=== PATIENT | female | born 1935 | race Caucasian/White ===

== ENCOUNTER 2022-10-22 10:16 | Inpatient (IN) ==
[2022-10-22] MEDS ORDERED: NS 0.9% 1000 ml BAG 1,000 ML IV SCH (11:15)
[2022-10-22] MEDS ORDERED: Heparin DRIP 25,000 UNITS BAG 25,000 UNITS/500 ML BAG IV SCH (11:15)
[2022-10-22] MEDS ORDERED: fentaNYL 100 mcg/2 ml 50 MCG/ML VIAL ONE (11:17)
[2022-10-22] MEDS ORDERED: Midazolam 5 mg/5 ml VIAL 1 mg/ml 5 ml VIAL (5 mg) ONE (11:17)
[2022-10-22] MEDS ORDERED: VERAPAMIL 2.5 MG/ML 2 ML VIAL ** 5 mg/2 ml ONE (11:17)
[2022-10-22] MEDS ORDERED: Heparin 1,000 UNIT/ML 10 ml (10,000 UNITS) CATHLAB/DIALYSIS ONE (11:17)
[2022-10-22] MEDS ORDERED: Heparin 2 UNITS/ML 1000 mls 3,000 ML IV ONE (11:17)
[2022-10-22] MEDS ORDERED: Iohexol 350 (CONTRAST) 200 ML MDV IV ONE ×2 (11:18→13:38)
[2022-10-22] MEDS ORDERED: nitroGLYCERIN DRIP 25,000 MCG/250 ML BTL ONE (11:18)
[2022-10-22] MEDS ORDERED: Lidocaine 1% MPF 5 ML VIAL ONE ×3 (11:18→12:05)
[2022-10-22 11:20] LABS: Hematocrit 39.1 % (35-45); Hemoglobin 13.2 g/dL (11.5-14.3); Mean Corpuscular Hemoglobin 32.4 pg (27-33); Mean Corpuscular Hgb Conc 33.7 g/dL (31-36); Mean Platelet Volume 9.9 fL (7.5-11.2); Platelet Count 304 10^3/uL (150-450); Red Blood Count 4.07 10^6/uL (3.63-4.92); Red Cell Distribution Width 13.2 % (12-17); White Blood Count 16.7 10^3/uL (3.8-11.8)
[2022-10-22] MEDS ORDERED: Bivalirudin 250 MG VIAL ONE ×2 (11:23→13:17)
[2022-10-22 11:29] VITALS: BP 115/69
[2022-10-22 11:39] LABS: Activated Partial Thrombo Time 32.6 seconds (26.0-38.0); INR 1.2 (0.88-1.18)
[2022-10-22 11:42] LABS: ALT 33 U/L (7-52); Albumin 3.6 g/dL (3.2-5.2); Albumin/Globulin Ratio 0.9 (1-3); Alkaline Phosphatase 96 U/L (35-149); Blood Urea Nitrogen 19 mg/dL (6-24); CO2 Carbon Dioxide 25 mmol/L (22-32); Calcium 9.1 mg/dL (8.6-10.3); Chloride 97 mmol/L (101-111); Creatinine, Serum 1.25 mg/dL (0.51-0.95); Globulin 3.8 g/dL (2-4); Glucose 130 mg/dL (70-100); Sodium 132 mmol/L (135-145); Total Protein 7.4 g/dL (6.4-8.9); eGFR CKD-EPI 42.2 (>60)
[2022-10-22 11:47] LABS: High Sens Troponin Baseline 20658 pg/mL (<15)
[2022-10-22 11:57] LABS: Cholesterol 181 mg/dL; HDL Cholesterol 64.8 mg/dL; LDL Cholesterol 96 mg/dL; Magnesium 1.9 mg/dL (1.9-2.7); Triglycerides 99 mg/dL
[2022-10-22] MEDS ORDERED: Heparin 5000 UNITS/ML 1 mL VIAL IV SCH (12:00)
[2022-10-22 12:12] LABS: Anion Gap 10 mmol/L (2-16)
[2022-10-22] MEDS ORDERED: Eptifibatide IV (Load dose) 2 MG/ML 10 ml VIAL ONE (12:27)
[2022-10-22 12:54] LABS: ABS Basophils 0.1 10^3/uL (0.0-0.1); ABS Eosinophils 0.1 10^3/uL (0.0-0.5); ABS Lymphocytes 0.9 10^3/uL (1.0-4.8); ABS Monocytes 2.2 10^3/uL (0.0-0.9); ABS Neutrophils 13.4 10^3/uL (1.5-7.6); ABS Nucleated RBC 0.01 10^3/ul; Eosinophil % 0.4 %; Lymphocyte % 5.5 %; Nucleated Red Blood Cells % 0.1 /100 WBC (0.0-0.4)
[2022-10-22] MEDS ORDERED: DOPamine 800 MG/250 ML IVPREMX 800 MG/250 ML ML CENTR ONE (13:08)
[2022-10-22] MEDS ORDERED: Norepinephrine 16MCG/ML BAGD5W 4,000 MCG/250 ML BAG IV ONE (13:32)
[2022-10-22 13:34] LABS: Calcium 7.4 mg/dL (8.6-10.3); Creatinine, Serum 0.97 mg/dL (0.51-0.95); Potassium 4.2 mmol/L (3.5-5.0); eGFR CKD-EPI 57.3 (>60)
[2022-10-22] MEDS ORDERED: Ondansetron 4 mg VIAL 2 MG/ML 2 ml VIAL ONE (13:36)
[2022-10-22] MEDS ORDERED: Furosemide 40 mg/4 ml IV VIAL ONE (13:48)
[2022-10-22] MEDS ORDERED: Sulfur Hexaflouride MICROSPHR 25 MG VIAL ONE (14:58)
[2022-10-22] MEDS ORDERED: Ondansetron 4 mg VIAL 2 MG/ML 2 ml VIAL IV PRN (15:10)
[2022-10-22] MEDS ORDERED: Albumin Human 5% 12.5 GM/250 ML BTL IV ONE ×3 (15:11→15:16)
[2022-10-22] MEDS ORDERED: NS 0.9% 1000 ml BAG 1,000 ML IV ONE (15:11)
[2022-10-22] MEDS ORDERED: Albumin Human 25% 25 GM/100 ML BTL IV ONE ×2 (15:12)
[2022-10-22] MEDS ORDERED: DOPamine 800 MG/250 ML IVPREMX 800 MG/250 ML ML CENTR SCH ×2 (15:15→16:00)
[2022-10-22] MEDS ORDERED: Succinylcholine 200 mg VIAL 20 mg/ml 10 ml VIAL (200 mg) ONE (15:37)
[2022-10-22] MEDS ORDERED: DOBUTamine 2000 MCG/ML IVPREMX 500 MG/250 ML BAG IV SCH (16:00)
[2022-10-22] MEDS ORDERED: Norepinephrine 16MCG/ML BAGD5W 4,000 MCG/250 ML BAG IV SCH (16:00)
== END 2022-10-22 15:53 | disposition expired | DRG 247 ==
LOC: ED 10:16 → ICU 11:26
PROVIDERS: ADMIT Internal Medicine; ATTEND Internal Medicine Critical Care Medicine